=== PATIENT | male | born 1990 | race American Indian/Alaskan Native ===

== ENCOUNTER 2016-09-04 09:33 | Emergency (ER) | payer OTHER ==
[2016-09-04 09:52] VITALS: BP 144/97
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
== END 2016-09-04 11:39 | disposition home or self-care (01) ==
LOC: ED 09:33
DX: S39.92XA Unspecified injury of lower back, initial encounter (principal); V89.2XXA Person injured in unspecified motor-vehicle accident, traffic, initial encounter; Y93.89 Activity, other specified; Y92.89 Other specified places as the place of occurrence of the external cause; Y99.8 Other external cause status
CPT/HCPCS: 72100; 99283

== ENCOUNTER 2016-11-16 09:06 | Emergency (ER) | payer OTHER ==
[2016-11-16 09:20] VITALS: BP 125/81
[2016-11-16] MEDS ORDERED: XYLOCAINE 2%/EPI 1:100,000 INFILTRATI ONE (12:31)
[2016-11-16] MEDS ORDERED: MOTRIN PO ONE (12:31)
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
== END 2016-11-16 12:00 | disposition left against medical advice (07) ==
LOC: ED 09:06
DX: L98.9 Disorder of the skin and subcutaneous tissue, unspecified (principal)
CPT/HCPCS: 99282

== ENCOUNTER 2016-11-16 22:30 | Emergency (ER) | payer SELFPAY ==
[2016-11-17 03:22] VITALS: BP 110/76
--- NOTE | 2016-11-17 04:50 | Emergency Department Report ---
HPI - General Chief Complaint: Skin/Abscess/Foreign Body Time Seen by Provider: 11/17/16 04:11 - HPI HPI: Patient is a 26-year-old male presents to ED complaining of left-sided lump on the back of his head times yesterday. Patient states he woke up yesterday and noticed that he had a lump on the left side of his scalp. Patient states the lump is a bit painful to touch with some swelling. He denies any trauma or fall or injury to the head He denies fevers/chills/headache/nausea/vomiting/abdominal pain or any other problems. ED Past Medical Hx - Past Medical History Previous Medical History?: No - Surgical History Past Surgical History?: Yes Additional Surgical History: FB removed from head per pt - Social History Smoking Status: Never Smoker Substance Use Type: None - Medications Home Medications: Home Medications Medication Instructions Recorded Confirmed Last Taken Type Cyclobenzaprine [Flexeril] 10 mg PO TID PRN #20 tablet 09/04/16 Unknown Rx Cephalexin [Keflex] 500 mg PO Q12HR #14 cap 11/17/16 Unknown Rx Ibuprofen [Motrin 800 MG tab] 800 mg PO Q8HR PRN #20 tablet 11/17/16 Unknown Rx ED Review of Systems ROS: Stated complaint: NECK/HEAD PAIN Other details as noted in HPI Constitutional: denies: chills, fever Eyes: denies: eye pain, eye discharge, vision change ENT: denies: ear pain, throat pain Respiratory: denies: cough, shortness of breath, wheezing Cardiovascular: denies: chest pain, palpitations Endocrine: no symptoms reported Gastrointestinal: denies: abdominal pain, nausea, diarrhea Genitourinary: denies: urgency, dysuria Musculoskeletal: denies: back pain, joint swelling, arthralgia Skin: denies: rash, lesions Neurological: denies: headache, weakness, paresthesias Psychiatric: denies: anxiety, depression Hematological/Lymphatic: denies: easy bleeding, easy bruising Physical Exam - Physical Exam Vital Signs: Vital Signs 11/16/16 11/17/16 22:41 03:19 Temperature 97.8 F 97.8 F Pulse Rate 68 76 Respiratory 18 16 Rate Blood Pressure 124/72 Blood Pressure 110/76 [Left] O2 Sat by Pulse 96 95 Oximetry Physical Exam: GENERAL: Alert and oriented x3, no apparent distress, Normal Gait, atraumatic. HEAD: Head is normocephalic and a-traumatic. 2-3 cm raised tender lump on the left occipital region. Non-fluctuant, no drainage, no active bleeding EYES: Extra ocular muscles are intact. Pupils are equal, round, and reactive to light and accommodation. MOUTH:Mouth is well hydrated and without lesions. Tonsils nonerythematous or swollen, Uvula midline, Tongue not elevated. Mucous membranes are moist. Posterior pharynx clear, no exudate or lesions. Patent airways. NECK: Supple. Non edematous, No lymphadenopathy or thyromegaly. No C-spine tenderness LUNGS: Symetrical with respiration, No wheezing, no rales or crackles, CTAB. HEART: S1, S2 present, regular rate and rhythm without murmur, no rubs, no gallops. Non tender to palpation PSYCHIATRIC: Mood is congruent with affect, denies suicidal or homicidal ideations. SKIN: Warm and dry, No lesions, No ulceration or induration present. ED Course Vital Signs 11/16/16 11/17/16 22:41 03:19 Temperature 97.8 F 97.8 F Pulse Rate 68 76 Respiratory 18 16 Rate Blood Pressure 124/72 Blood Pressure 110/76 [Left] O2 Sat by Pulse 96 95 Oximetry ED Medical Decision Making - Medical Decision Making 26-year-old male presents with a lump on the back of the head ED course: I discussed the patient this could be inflammation from an insect bite, abscess. Discussed home trial of pain medication and antibiotics. Discussed with patient to warm compresses 3 times a day. Discussed if worsening or gets bigger to return to the ED. Discussed the follow-up with primary care physician. He is alert and oriented 3 He states he understands instructions given. Critical care attestation.: If time is entered above; I have spent that time in minutes in the direct care of this critically ill patient, excluding procedure time. ED Disposition Clinical Impression: Pain of scalp, Scalp cyst Disposition: DC-01 TO HOME OR SELFCARE Is pt being admited?: No Does the pt Need Aspirin: No Condition: Stable Instructions: Abscess (ED), Scalp Contusion in Adults (ED), Heat Pack Application (ED) Prescriptions: Cephalexin [Keflex] 500 mg PO Q12HR #14 cap Ibuprofen [Motrin 800 MG tab] 800 mg PO Q8HR PRN #20 tablet PRN Reason: Pain Referrals: PRIMARY CARE, [Primary Care Provider] - 3-5 Days [facility] [Outside] - 3-5 Days [facility] [Outside] - 3-5 Days Forms: Accompanied Note, Work/School Release Form(ED) Time of Disposition: 04:53
[2016-11-17] MEDS ORDERED: KEFLEX PO ONE (05:04)
[2016-11-17] MEDS ORDERED: MOTRIN PO ONE (05:04)
== END 2016-11-17 05:33 | disposition home or self-care (01) ==
LOC: ED 22:30
DX: L72.8 Other follicular cysts of the skin and subcutaneous tissue (principal)
CPT/HCPCS: 99282